=== PATIENT | female | born 1980 | race Caucasian/White ===

== ENCOUNTER → 2020-08-31 | Outpatient (CLI) | payer OTHER ==
--- NOTE | 2020-09-04 10:59 | RAD ---
DATE: 08/31/2020 2:45 PM EXAM: MAMMO JACKELINE SCREENING BILATERAL HISTORY: Screening COMPARISON: 08/31/2020 Bilateral CC and MLO views of the breasts were performed. Bilateral breast tomosynthesis was performed in CC and MLO projections. This study was interpreted with the benefit of Computerized Aided Detection (CAD). FINDINGS: Breast Density: HETERO The breast parenchyma Is heterogeneously dense, which could reduce sensitivity of mammography. Breast parenchyma level C Waxing and waning pattern of nodularity compatible benign cystic change. No suspicious masses, microcalcifications or architectural distortion is present to suggest malignancy in either breast. The visualized axillae are unremarkable. IMPRESSION: No mammographic evidence of malignancy. BI-RADS CATEGORY: 2 BENIGN FINDING(S) RECOMMENDED FOLLOW-UP: 12M 12 MONTH FOLLOW-UP Annual screening mammography is recommended, unless clinically indicated sooner based on symptoms or change in physical exam. PQRS compliance statement: Patient information was entered into a reminder system with a target due date for the next mammogram. Mammography is a sensitive method for finding small breast cancers, but it does not detect them all and is not a substitute for careful clinical examination. A negative mammogram does not negate a clinically suspicious finding and should not result in delay in biopsying a clinically suspicious abnormality. "Our facility is accredited by the [employer] Mammography Program."
== END ==
LOC: MAMMO 14:39
PROVIDERS: ATTEND Advanced Practice Midwife
DX: Z12.31 Encounter for screening mammogram for malignant neoplasm of breast (principal)
CPT/HCPCS: 77063; 77067

== ENCOUNTER → 2021-07-17 | Outpatient (CLI) | payer OTHER ==
--- NOTE | 2021-07-18 08:56 | RAD ---
Site ID: [id number] EXAMINATION: XR THORACIC SPINE 3VIEWS. HISTORY: 41 years Female Reason: RADICULOPATHY COMPARISON: None. FINDINGS: The alignment of the thoracic spine is satisfactory. Please note that the upper thoracic spine evalua tion is limited due to overlying shoulders. The vertebral body heights appear preserved. Multilevel a nterior osteophyte is noted throughout the thoracic spine. There is a mild disc height loss and endpl ate sclerosis seen at the upper to mid thoracic spine levels with no posterior osteophyte formation a ppreciated. The paraspinal soft tissues appear grossly unremarkable. IMPRESSION: Mild multilevel anterior osteophytes. Electronically signed by: Leland Angeles MD (07/18/2021 8:54 AM) [id number]
--- NOTE | 2021-07-18 08:57 | RAD ---
Site ID: [id number] EXAMINATION: XR CERVICAL SPINE 2-3V. HISTORY: 41 years Female Reason: RADICULOPATHY / . COMPARISON: None. FINDINGS: There is straightening of the lordotic curvature of the spine could be related to muscle spasm. The a lignment of the posterior spinal line satisfactory. Alignment of the lateral masses of C1 and C2 sati sfactory. The vertebral body heights are preserved. There is mild disc height loss at C5/6 and C6/7 l evels. Anterior osteophytes at C6/7 level is seen. There is possible small posterior from osteophytes at C5/6 and C6/7. IMPRESSION: Degenerative disc changes most prominent at C6/7 level. Electronically signed by: Leland Angeles MD (07/18/2021 8:55 AM) [id number]
== END ==
LOC: RAD 15:54
PROVIDERS: ATTEND Physician Assistant
DX: M25.78 Osteophyte, vertebrae (principal); M51.24 Other intervertebral disc displacement, thoracic region; M47.22 Other spondylosis with radiculopathy, cervical region; M50.322 Other cervical disc degeneration at C5-C6 level
CPT/HCPCS: 72040; 72072

== ENCOUNTER → 2021-09-10 | Outpatient (CLI) | payer OTHER ==
--- NOTE | 2021-09-11 15:35 | RAD ---
Bilateral digital screening 2-D and 3-D (digital breast tomosynthesis) mammogram: Reason for examination: Routine screening. Comparison: Mammogram from 08/31/2020. Interpretation was made with the benefit of CAD. FINDINGS: Breast density: Category B. There are scattered areas of fibroglandular density. No suspicious breast mass, malignant appearing calcifications, or architectural distortion is seen. IMPRESSION: No evidence of malignancy. Assessment: BI-RADS 1. Negative. Recommendation: Routine screening mammograms. The patient will receive a letter with the results in the mail. Patient information will be entered i nto the mammography reminder system with a target recall date for the next mammogram. A reminder arlet er will be generated. Electronically signed by: Ktah Hill MD (09/11/2021 3:32 PM) [id number]
== END ==
LOC: MAMMO 14:57
PROVIDERS: ATTEND Family Medicine
DX: Z12.31 Encounter for screening mammogram for malignant neoplasm of breast (principal)
CPT/HCPCS: 77063; 77067